=== PATIENT | male | born 1965 | race Caucasian/White ===

== ENCOUNTER → 2019-08-30 12:16 | Outpatient (BNVA) | payer MEDICARE, SELFPAY | PROVIDERS: Family Provider Nurse Practitioner Family; PCP Nurse Practitioner Family; Visit Provider Nurse Practitioner Family | DX: E78.5 Hyperlipidemia, unspecified (principal); J45.909 Unspecified asthma, uncomplicated; G47.33 Obstructive sleep apnea (adult) (pediatric); R53.83 Other fatigue; K59.00 Constipation, unspecified | CPT/HCPCS: 80053; 80061; 85025 ==

== ENCOUNTER → 2020-02-28 11:25 | Outpatient (BNVA) | payer MEDICARE, SELFPAY | PROVIDERS: Family Provider Nurse Practitioner Family; PCP Nurse Practitioner Family; Visit Provider Family Medicine | DX: M25.561 Pain in right knee (principal) | CPT/HCPCS: 73562 ==

== ENCOUNTER → 2021-02-08 09:58 | Outpatient (BNVA) | payer MEDICARE, SELFPAY | PROVIDERS: Family Provider Nurse Practitioner Family; PCP Family Medicine; Visit Provider Family Medicine | DX: J44.9 Chronic obstructive pulmonary disease, unspecified (principal); E78.5 Hyperlipidemia, unspecified | CPT/HCPCS: 80053; 80061; 84443; 85025 ==

== ENCOUNTER 2021-03-20 09:53 | Emergency (ER) | payer MEDICARE, SELFPAY ==
[2021-03-20] VITALS (9 sets, daily range): BP systolic 108–176; BP diastolic 79–100; PULSE 83–91; RESP 16–19; TEMP 37.1; O2SAT 87–98; BMI 39.9
--- NOTE | 2021-03-20 09:51 | ED_ITS ---
HPI - SOB/Dyspnea General: Chief Complaint: Shortness of Breath/Dyspnea Stated Complaint: SOB History of Present Illness: HPI Narrative: Mr. England is a 55-year-old gentleman with significant past medical history of COPD who presents to the emergency department due to shortness of breath. Onset of symptoms was gradual approximately 3 days ago and has progressively worsening. He does have mild associated worsening cough and generalized malaise. No other infectious symptoms. Intensity is currently moderate to severe. Worse with exertion. No other specific exacerbating or alleviating factors identified. Review of Systems General: Reports: 10 or more systems reviewed and unremarkable except in HPI and below PFS ED [facility]: Medical History (Updated 03/20/21 @ 14:17 by Rizwan Ortega MD) Asthma Hyperlipidemia Surgical History History of hernia surgery Previous back surgery Family History Mother Diabetes Hypertension Social History Smoking and tobacco status: current every day smoker cigarettes Packs smoked per day: 1 Years cigarettes smoked: 30 [ Other cigarette details: 0.5ppd currently ] Second hand smoke exposure: No Alcohol intake: never Lives independently: Yes Household members: spouse Marital status: History of recent travel: No Current gender identity: Male Physical Exam Narrative: EXAM NARRATIVE: GENERAL/CONSTITUTIONAL -mildly ill-appearing. No acute distress. Eyes -no scleral icterus, no conjunctival injection ENMT - Atraumatic external nose and ears. Moist mucous membranes NECK - supple. trachea midline CARDIOVASCULAR - regular rate and rhythm. 1-2+ pitting edema RESPIRATORY - diminished to auscultation bilaterally. Expiratory and trace inspiratory wheezes ABDOMEN/GI - Nontender/Nondistended. MSK - Extremities without obvious deformity or tenderness to palpation SKIN - Warm, Dry NEURO - alert and appropriately oriented. Moves all extremities equally. Course ED course: - Patient was seen and evaluated by me at bedside - Patient placed on cardiac monitors, IV access obtained - Initial evaluation notable for somewhat ill appearance, wheezes and diminished breath sounds, bilateral lower extremity edema which the patient reports is chronic and not worse. -Symptom treatment and RT treatment ordered - Labs notable for no leukocytosis. No significant metabolic abnormalities to explain patient's symptoms. Covid negative. - Imaging notable for no lobar consolidation. - Upon serial reexamination after treatment the patient was only mildly improved, further improvement with repeat RT treatment. - Based on patient history, evaluation, labs, and imaging as interpreted the most likely cause of the patient's condition is exacerbation of COPD with new oxygen requirement due to heart hypoxemia and respiratory distress on room air. - The results of ED evaluation were discussed with the patient including potential disposition options. I offered the patient admission versus discharge with home oxygen and COPD exacerbation treatment. The patient elected for outpatient therapy. After RT evaluation for home oxygen qualification home oxygen was ordered. I discussed prescriptions and/or symptomatic cares (if applicable) including appropriate and responsible use, followup plan, and return precautions. The patient verbalized understanding and felt safe for discharge. - Patient discharged in satisfactory condition. Vital Signs: Vital signs: Vital Signs Temperature 98.7 F 03/20/21 09:52 Pulse Rate 91 03/20/21 15:55 Respiratory Rate 16 03/20/21 13:22 Blood Pressure 134/79 03/20/21 15:55 Pulse Oximetry 95 03/20/21 15:55 MDM - SOB/Dyspnea Medical Records: Attestation: I reviewed the patient's medical records. Lab Data: Attestation: I reviewed the patient's lab results. Labs: Lab Results 03/20/21 03/20/21 03/20/21 10:21 10:21 10:21 WBC 7.8 10^3/uL 10^3/ uL (4.0-10.0) RBC 4.88 10^6/uL 10^6 /uL (4.1-5.3) Hgb 15.3 g/dL g/dL (11.7-16.6) Hct 47.1 % % (42.0-52.0) MCV 96.5 fl H fl (80-94) MCH 31.4 pg pg (28.0-34.0) MCHC 32.5 g/dL g/dL (30.0-36.0) RDW 13.0 % % (12.1-15.1) Plt Count 308 10^3/cmm 10^3 /cmm (130-400) MPV 8.5 fL fL (7.4-10.4) Neut % (Auto) 72.6 % % Lymph % (Auto) 13.8 % % [place] % (Auto) 8.7 % % Eos % (Auto) 4.0 % % Baso % (Auto) 0.6 % % Neut # (Auto) 5.67 10^3/uL 10^3 /uL (1.8-7.7) Lymph # (Auto) 1.1 10^3/uL 10^3/ uL (0.8-4.8) [place] # (Auto) 0.7 10^3/uL 10^3/ uL (0.2-0.9) Eos # (Auto) 0.3 10^3/uL 10^3/ uL (0.0-0.8) Baso # (Auto) 0.1 10^3/uL 10^3/ uL (0.0-0.1) Nucleated RBC % (a uto) 0 % % Nucleated RBCs # 0.0 /100WBC /100W BC Sodium 137 mmol/L mmol/L (136-145) Potassium 4.6 mmol/L mmol/L (3.5-5.1) Chloride 101 mmol/L mmol/L (98-107) Carbon Dioxide 24 mmol/L mmol/L (22-29) Anion Gap 16.6 (5-19) BUN 11 mg/dL mg/dL (6-20) Creatinine 0.9 mg/dL mg/dL (0.7-1.2) GFR Calculation 87.3 mL/min L mL/ min (90-130) Glucose 95 mg/dL mg/dL (65-115) Calculated Osmolal ity 283 mOsm/kg L mOs m/kg (285-295) Calcium 9.2 mg/dL mg/dL (8.5-10.5) Total Bilirubin 0.2 mg/dL mg/dL (0.15-1.2) AST 25 U/L U/L (0-40) ALT 24 U/L U/L (0-41) Alkaline Phosphata se 98 IU/L IU/L (40-130) Troponin T Baselin e 6 ng/L ng/L (0-15) Troponin T 120 Min [place] Troponin T C-Reactive Protein 3.4 mg/L mg/L (0.0-4.9) NT-Pro-B Natriuret Pep 25 pg/mL pg/mL (0-125) Total Protein 6.7 g/dL g/dL (6.6-8.7) Albumin 4.5 g/dL g/dL (3.5-5.2) Globulin 2.2 g/dL g/dL (1.3-4.6) Procalcitonin 0.06 ng/mL ng/mL (0-0.5) SARS-CoV-2 Ag (Rap id) 03/20/21 03/20/21 10:34 12:07 WBC RBC Hgb Hct MCV MCH MCHC RDW Plt Count MPV Neut % (Auto) Lymph % (Auto) [place] % (Auto) Eos % (Auto) Baso % (Auto) Neut # (Auto) Lymph # (Auto) [place] # (Auto) Eos # (Auto) Baso # (Auto) Nucleated RBC % (a uto) Nucleated RBCs # Sodium Potassium Chloride Carbon Dioxide Anion Gap BUN Creatinine GFR Calculation Glucose Calculated Osmolal ity Calcium Total Bilirubin AST ALT Alkaline Phosphata se Troponin T Baselin e Troponin T 120 Min [place] 7.43 ng/L ng/L (0-15) Delta Troponin T 1.43 ABS# ABS# (0-10) C-Reactive Protein NT-Pro-B Natriuret Pep Total Protein Albumin Globulin Procalcitonin SARS-CoV-2 Ag (Rap id) Negative (Negative) EKG Data^: EKG 1: Attestation: I personally reviewed and interpreted this EKG as follows: EKG Interpretation Date: 03/20/21 EKG interpretation time: 10:13 Interpretation: Twelve-lead EKG shows a regular rhythm at a rate of 81. Level 221, QRS duration 83, QTc 370. Normal axis. Interpretation: Sinus rhythm. First-degree AV block. EKG 2: Attestation: I personally reviewed and interpreted this EKG as follows: EKG Interpretation Date: 03/20/21 EKG interpretation time: 12:45 Interpretation: Twelve-lead EKG shows a regular rhythm at a rate of 80. SC interval 197, QRS duration 98, QTc 395. Normal axis. Interpretation: Sinus rhythm Discharge Plan Discharge Patient Disposition: Home Clinical Impression: Acute exacerbation of chronic obstructive airways disease Condition: Stable Prescriptions: New albuterol sulfate 90 mcg/actuation HFA aerosol inhaler See Rx Instructions .ROUTE .COMPLEX Qty: 8.5 RF: 0 doxycycline hyclate 100 mg tablet 100 mg PO BID 7 Days Qty: 14 RF: 0 No Action rosuvastatin [Crestor] 40 mg tablet 40 mg PO DAILY Qty: 30 RF: 3 Trelegy Ellipta 100-62.5-25 mcg blister with device See Rx Instructions .ROUTE .COMPLEX Qty: 60 RF: 3 diclofenac sodium 75 mg tablet,delayed release (DR/EC) 75 mg PO BID PRN (Reason: pain) Qty: 60 RF: 3 albuterol sulfate 90 mcg/actuation HFA aerosol inhaler 2 puff INHALATION Q6H PRN (Reason: shortness of breath or wheezing) Qty: 18 RF: 2 albuterol sulfate 2.5 mg /3 mL (0.083 %) solution for nebulization See Rx Instructions .ROUTE .COMPLEX Qty: 225 RF: 5 arformoterol [Brovana] 15 mcg/2 mL solution for nebulization 2 ml inhalation DAILY Qty: 60 RF: 3 nicotine 21-14-7 mg/24 hr patch, TD daily, sequential See Rx Instructions transdermal .COMPLEX Qty: 56 RF: 0 cyclobenzaprine 10 mg tablet 10 mg PO TID PRN (Reason: muscle spasm) Qty: 30 RF: 0 fenofibrate 160 mg tablet 160 mg PO DAILY Qty: 90 RF: 0 Discharge Orders: Discharge ED (Routine); Ordered 03/20/21 Ordered By: Rizwan Ortega Other Ambulatory Orders: DME: Oxygen (Order) Location: None Selected Ordered By: Rizwan Ortega Referrals: Triny Elder MD [Primary Care Provider] - Discharge Diet: Usual diet Discharge Activity: Resume usual activity Patient Instructions: Using Oxygen at Home (ED), COPD (Chronic Obstructive Pulmonary Disease) (ED) Activity Restrictions/Additional Instructions: Thank you for visiting the emergency department. You were seen and evaluated for shortness of breath. The most likely cause of your symptoms is exacerbation of your underlying lung disease (COPD). You will be given prescriptions as well as home oxygen which she should use until improvement/return to baseline and follow-up with your security expert. Return to the emergency department for failure to improve, worsening symptoms, or anything else that you are concerned about and feel needs emergency department evaluation. Please follow-up with your primary care provider. Coding Level of Care Code ED Pulley Maintainer for Brijesh Davies
--- NOTE | 2021-03-20 10:14 | XRR_ITS ---
PROCEDURE INFORMATION: Exam: XR Chest Exam date and time: 03/20/2021 10:14 AM Age: 55 years old Clinical indication: Cough and shortness of breath; Additional info: SOB x 3 days TECHNIQUE: Imaging protocol: XR of the chest. Views: 1 view. COMPARISON: CR Chest 2 views* [id number] 03/30/2018 10:46 AM FINDINGS: Lungs: Lungs are well aerated without a focal area of consolidation. Pleural spaces: Unremarkable. No pleural effusion. No pneumothorax. Heart/Mediastinum: The cardiac silhouette appears enlarged, some of which is magnification related to the AP projection. Density adjacent to the right and left heart borders likely fat. Bones/joints: Unremarkable. XR/XR chest 1V portable [id number] IMPRESSION: Lungs are well aerated without a focal area of consolidation. Radiation Dose CTDIVOL = (mGy): DLP = (mGy-cm)
--- NOTE | 2021-03-20 10:15 | ECG_ITS ---
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 Measurements Intervals [place] Rate: 81 P: 63 CO: 221 QRS: 85 QRSD: 83 T: 58 QT: 332 QTc: 387 Interpretive Statements SINUS RHYTHM WITH FIRST DEGREE AV BLOCK SEPTAL MYOCARDIAL INFARCTION , PROBABLY OLD [40+ ms Q WAVE IN V1/V2] Compared to ECG 04/11/2016 09:08:46 First degree AV block now present Myocardial infarct finding now present Electronically Signed On 03-20-2021 17:36:03 SURGICAL ASST by Jermaine Pemberton M.D. [id number]
[2021-03-20 10:37] LABS: Basophils # 0.1 10^3/uL (0.0-0.1); Basophils % 0.6 %; Eosinophils # 0.3 10^3/uL (0.0-0.8); Hematocrit 47.1 % (42.0-52.0); Hemoglobin 15.3 g/dL (11.7-16.6); Lymphocytes # 1.1 10^3/uL (0.8-4.8); Lymphocytes % 13.8 %; Mean Corpuscular HGB Conc 32.5 g/dL (30.0-36.0); Mean Corpuscular Hemoglobin 31.4 pg (28.0-34.0); Mean Corpuscular Volume 96.5 fl (80-94); Mean Platelet Volume 8.5 fL (7.4-10.4); Monocytes # 0.7 10^3/uL (0.2-0.9); Monocytes % 8.7 %; Neutrophils # 5.67 10^3/uL (1.8-7.7); Neutrophils % 72.6 %; Nucleated Red Blood Cells % 0 %; Platelet Count 308 10^3/cmm (130-400); Red Blood Count 4.88 10^6/uL (4.1-5.3); White Blood Count 7.8 10^3/uL (4.0-10.0)
[2021-03-20 11:10] LABS: Troponin(5th) Baseline 6 ng/L (0-15)
[2021-03-20 11:15] LABS: NT Pro B Type Natriuretic Pept 25 pg/mL (0-125); Procalcitonin 0.06 ng/mL (0-0.5)
[2021-03-20 11:26] LABS: Alanine Aminotransferase 24 U/L (0-41); Albumin Level 4.5 g/dL (3.5-5.2); Alkaline Phosphatase 98 IU/L (40-130); Anion Gap 16.6 (5-19); Aspartate Amino Transferase 25 U/L (0-40); Blood Urea Nitrogen 11 mg/dL (6-20); C Reactive Protein 3.4 mg/L (0.0-4.9); Calcium 9.2 mg/dL (8.5-10.5); Carbon Dioxide 24 mmol/L (22-29); Chloride 101 mmol/L (98-107); Globulin 2.2 g/dL (1.3-4.6); Glomerular Filtration Rate 87.3 mL/min (90-130); Glucose 95 mg/dL (65-115); Osmolality Calculated 283 mOsm/kg (285-295); Potassium 4.6 mmol/L (3.5-5.1); Sodium 137 mmol/L (136-145); Total Bilirubin 0.2 mg/dL (0.15-1.2); Total Protein 6.7 g/dL (6.6-8.7)
[2021-03-20 11:41] LABS: SARS Covid-2 Antigen Negative (Negative)
[2021-03-20] MEDS: ipratropium-albuterol 3 mL Neb INHALATION ×2 (11:53→13:15)
--- NOTE | 2021-03-20 12:15 | ECG_ITS ---
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 Measurements Intervals [place] Rate: 80 P: 68 MT: 197 QRS: 86 QRSD: 98 T: 53 QT: 360 QTc: 415 Interpretive Statements SINUS RHYTHM Compared to ECG 04/11/2016 09:08:46 No significant changes Electronically Signed On 03-20-2021 17:43:19 COMPUTER SYSTEM VALIDATION SPECIALIST by Jermaine Pemberton M.D. [id number]
[2021-03-20 12:40] LABS: Troponin 5 2HR 7.43 ng/L (0-15); Troponin 5 2HR Delta 1.43 ABS# (0-10)
== END 2021-03-20 15:57 | disposition home or self-care (01) ==
PROVIDERS: Emergency Provider Emergency Medicine; PCP Family Medicine
DX: J44.1 Chronic obstructive pulmonary disease with (acute) exacerbation (principal); F17.210 Nicotine dependence, cigarettes, uncomplicated
CPT/HCPCS: 71045; 80053; 83880; 84145; 84484; 85025; 86140; 87426; 93005; 94640; 96374; 99284; J2930

== ENCOUNTER → 2021-03-26 10:42 | Outpatient (BNVA) | payer MEDICARE, SELFPAY | PROVIDERS: PCP Family Medicine; Visit Provider Family Medicine | DX: E78.2 Mixed hyperlipidemia (principal); J44.9 Chronic obstructive pulmonary disease, unspecified; F17.210 Nicotine dependence, cigarettes, uncomplicated | CPT/HCPCS: 80053; 80061; 84443; 85025 ==

== ENCOUNTER 2021-04-03 11:57 | Outpatient (CLI) | payer MEDICARE, SELFPAY ==
--- NOTE | 2021-04-03 12:10 | CT_ITS ---
WS: [id number] LDCT LUNG CANCER SCREENING TECHNIQUE: Noncontrast CT of the chest with coronal and sagittal reformatted images. CLINICAL INFORMATION: Lung Screening COMPARISON: None. DLP: 59.33 mGy.cm DIvol: 1.[address] scans at [facility] use at least one of these dose optimization techniques: automat ed exposure control; mA and/or kV adjustment per patient size (includes targeted exams where dose is matched to clinical indication); or iterative reconstruction. FINDINGS: Both lungs are well aerated. Subsegmental atelectasis in the lingula. A few calcified granulomas. No suspicious pulmonary parenchymal normalities. No mediastinal or hilar lymphadenopathy. Normal caliber thoracic aorta. Adrenal glands are normal. Normal thoracic spine. CT/CT lung screening [id number] IMPRESSION: LUNG-RADS: 2-Benign Appearance or Behavior FOLLOW UP: 12 Month: Continue annual screening with LDCT
== END 2021-04-03 11:58 | disposition home or self-care (01) ==
LOC: RAD 11:58
PROVIDERS: PCP Family Medicine; Visit Provider Internal Medicine Pulmonary Disease
DX: Z12.2 Encounter for screening for malignant neoplasm of respiratory organs (principal); F17.210 Nicotine dependence, cigarettes, uncomplicated
CPT/HCPCS: 71271

== ENCOUNTER → 2021-07-01 12:24 | Outpatient (BNVA) | payer MEDICARE, SELFPAY | PROVIDERS: PCP Family Medicine; Visit Provider Family Medicine | DX: J44.9 Chronic obstructive pulmonary disease, unspecified (principal); E78.2 Mixed hyperlipidemia; G56.20 Lesion of ulnar nerve, unspecified upper limb | CPT/HCPCS: 80053; 80061; 85025 ==

== ENCOUNTER → 2021-09-02 13:57 | Outpatient (BNVA) | payer MEDICARE, SELFPAY | PROVIDERS: PCP Family Medicine; Visit Provider Nurse Practitioner Family | DX: J44.9 Chronic obstructive pulmonary disease, unspecified (principal) | CPT/HCPCS: 71046 ==

== ENCOUNTER 2021-09-19 08:20 | Outpatient (CLI) | payer MEDICARE, SELFPAY ==
--- NOTE | 2021-09-19 08:45 | USCV_ITS ---
[facility] Age: 55 Gender: M : 1965 Exam Date: 09/19/2021 08:31 Ordering Phys: Myriam MatthewP Technologist: Exam Location: [place] Indication: chf BP: 120 / 70 HR: 74 Rhythm: Sinus Technical Quality: Adequate MEASUREMENTS (Male / Female) Normal Values 2D ECHO LV Diastolic Diameter PLAX 4.6 cm 4.2 - 5.9 / 3.9 - 5.3 cm LV Systolic Diameter PLAX 2.5 cm IVS Diastolic Thickness 1.4 cm 0.6 - 1.0 / 0.6 - 0.9 cm IVS Systolic Thickness 1.8 cm LVPW Diastolic Thickness 1.6 cm 0.6 - 1.0 / 0.6 - 0.9 cm LVPW Systolic Thickness 1.6 cm LVOT Diameter 2.0 cm LV Ejection Fraction 2D Teich 75.7 % LV Ejection Fraction MOD 2C 63.1 % LV Ejection Fraction 2C AL 64.6 % LA Diameter 4.0 cm Aorta at Sinotubular Diameter 3.1 cm M-MODE Aortic Annulus Diameter 3.8 cm LA Ao Ratio MM 1.2 MV E Point Septal Separation 0.8 cm DOPPLER AV Peak Velocity 119.0 cm/s LVOT Peak Velocity 79.0 cm/s AV Area Cont Eq vti 2.3 cm squared AV Area Cont Eq pk 2.2 cm squared MV Area PHT 5.0 cm squared Mitral E to A Ratio 1.0 MV E' Velocity 36.5 cm/s Mitral E to MV E' Ratio 5.6 Mitral E to LV E' Lateral Ratio 6.7 Mitral E to LV E' Septal Ratio 4.9 TR Peak Velocity 130.7 cm/s TR Peak Gradient 6.8 mmHg TV Peak E Velocity 80.0 cm/s Right Atrial Pressure 3.0 mmHg Pulmonary Artery Systolic Pressu 9.8 mmHg PV Peak Velocity 126.0 cm/s FINDINGS Left Ventricle Normal left ventricular size and systolic function, EF 60 %. No regional wall motion abnormalities. Right Ventricle Normal right ventricular size and systolic function. Right Atrium The right atrium is normal in size. Left Atrium The left atrium is normal in size. Mitral Valve No gross abnormalities noted Aortic Valve No gross abnormalities noted Tricuspid Valve No gross abnormalities noted Pulmonic Valve Pulmonic valve not well visualized. Pericardium Normal pericardium without effusion. Aorta Normal aortic annulus size. IVC The inferior vena cava pulmonary and hepatic veins appear normal. CONCLUSIONS Normal left ventricular size and systolic function, EF 60 %. No regional wall motion abnormalities. Normal cardiac chamber sizes. No significant stenotic or regurgitant lesions There is no pericardial effusion. No previous study is available for comparison. Dr Aamir Massey MD [facility]GED WITH [facility] (Electronically Signed) Final Date: 19 Sep 2021 14:11 S
== END 2021-09-19 08:21 | disposition home or self-care (01) ==
PROVIDERS: PCP Family Medicine; Visit Provider Nurse Practitioner Family
DX: I50.9 Heart failure, unspecified (principal)
CPT/HCPCS: 93306

== ENCOUNTER 2021-11-21 08:48 | Outpatient (CLI) | payer MEDICARE, SELFPAY ==
[2021-11-21 09:44] LABS: ABG PCO2 42.5 mmHg (35-45); ABG PH Result 7.41 (7.35-7.45); Alveolar-Arterial Oxygen Gradi 1.3 mmHg (5-10); Arterial Blood Gas Hematocrit 43.6 % (42-52); Blood Gas Allen Test Pos; Blood Gas Operator Identificat BROMA; Blood Gas Sample Site Radial, left; Blood Gas Sample Type Arterial; Carboxyhemoglobin 3.9 %THgb (0.4-20.1); HGB O2 Sat 92.5 % (95-100); Ionized Calcium Level - ABG 1.3 mmol/L (1.1-1.4); Oxygen Device NC; Oxygen Saturation ABG 97.3; PO2 ABG 86.6 mmHg (80.0-100.0); Potassium Level - ABG 4.1 mmol/L (3.5-5.0); Total Hemoglobin 14.2 g/dL (14-18)
--- NOTE | 2021-11-21 13:58 | PFTS_ITS ---
Date of Study:11/21/21 Date of Dictation: 11/22/2021 MECHANICS: Postbronchodilator forced vital capacity (FVC) is reduced. Postbronchodilator forced expiratory volume in one second (FEV1) is severely reduced. FEV1/FVC is reduced. There is no significant bronchodilator response. FLOW VOLUME LOOP: Sloping of expiratory limb suggestive of airflow obstruction . LUNG VOLUMES: Total lung capacity (TLC) is normal. Residual volume (RV) is increased suggestive of air trapping. DIFFUSING CAPACITY FOR CARBON MONOXIDE: Mildly reduced . INTERPRETATION: The postbronchodilator is spirometry suggestive of severe airflow obstruction. There is no significant bronchodilator response. Lung volumes suggest air trapping and hyperinflation. There is mild gas transfer defect. Clinical correlation recommended. MTDD
== END 2021-11-21 08:49 | disposition home or self-care (01) ==
LOC: RT 08:49
PROVIDERS: PCP Family Medicine; Visit Provider Internal Medicine Pulmonary Disease
DX: J44.9 Chronic obstructive pulmonary disease, unspecified (principal); R06.00 Dyspnea, unspecified
CPT/HCPCS: 36600; 80051; 82330; 82805; 94060; 94726; 94729; J7614

== ENCOUNTER → 2021-12-31 11:55 | Outpatient (BNVA) | payer MEDICARE, SELFPAY | PROVIDERS: PCP Family Medicine; Visit Provider Internal Medicine | DX: I50.9 Heart failure, unspecified (principal); E78.2 Mixed hyperlipidemia; R06.00 Dyspnea, unspecified; R07.89 Other chest pain; F17.210 Nicotine dependence, cigarettes, uncomplicated | CPT/HCPCS: 99204 ==

== ENCOUNTER → 2022-01-22 16:40 | Outpatient (BNVA) | payer MEDICARE, SELFPAY | PROVIDERS: PCP Family Medicine; Visit Provider Family Medicine | DX: E78.2 Mixed hyperlipidemia (principal); J44.9 Chronic obstructive pulmonary disease, unspecified; R53.83 Other fatigue | CPT/HCPCS: 80053; 80061; 82306; 82607; 83540; 83721; 84403; 84443; 85025; G0103 ==

== ENCOUNTER 2022-02-10 14:04 | Outpatient (CLI) | payer MEDICARE, SELFPAY ==
--- NOTE | 2022-02-10 14:30 | USCV_ITS ---
[place] Age: 56 Gender: M : 1965 Exam Date: 02/10/2022 14:46 Ordering Phys: Jermaine Pemberton M.D ([email or web address]) Technologist: RAMOS [place] [facility] [place]: Risk Factors: Previous Vascular Surgery: Right Brachial BP: / Left Brachial BP: / Right Left Velocity (cm/s) Spectral Plaque Velocity (cm/s) Spectral Plaque Syst/Diast Broadening Syst/Diast Broadening 88.60/ 25.60 Prox CCA 51.30 / 12.30 77.70/ 22.50 Mid CCA 67.00 / 17.70 80.00/ 20.20 Distal CCA 48.60 / 13.80 58.50/ 19.70 Prox ICA 66.40 / 15.80 57.80/ 17.70 Mid ICA 82.00 / 29.10 63.80/ 18.40 Distal ICA 70.10 / 31.60 83.90 ECA 51.90 0.72 ICA/CCA 1.22 Antegrade Vertebral Antegrade 41.40/ 14.10 cm/s 32.60/ 8.00 cm/s Tri Subclavian Tri 80.80 78.50 FINDINGS No significant obstructive lesions noted in the extracranial carotid system. CONCLUSIONS Right ICA stenosis <50%. Left ICA stenosis <50%. Normal antegrade Doppler flow noted in the right vertebral artery. Normal antegrade Doppler flow noted in the left vertebral artery. Hiram Bowser MD (Electronically Signed) Final Date: 10 February 2022 17:06 S
== END 2022-02-10 14:05 | disposition home or self-care (01) ==
LOC: RAD 14:06
PROVIDERS: PCP Family Medicine; Visit Provider Internal Medicine
DX: I65.23 Occlusion and stenosis of bilateral carotid arteries (principal)
CPT/HCPCS: 93880

== ENCOUNTER 2022-02-27 06:00 | Outpatient (RCR) | payer MEDICARE, SELFPAY ==
--- NOTE | 2022-02-27 16:29 | PC.PULMREH ---
Patient attended Pulmonary Rehab Education Class.
== END 2022-03-26 23:59 | disposition home or self-care (01) ==
LOC: APT 06:00
PROVIDERS: PCP Family Medicine; Visit Provider Internal Medicine Pulmonary Disease
DX: R53.81 Other malaise (principal); J44.9 Chronic obstructive pulmonary disease, unspecified
CPT/HCPCS: 97110; 97112; 97162

== ENCOUNTER 2022-03-13 15:13 | Outpatient (CLI) | payer MEDICARE, SELFPAY ==
--- NOTE | 2022-03-13 16:00 | CT_ITS ---
WS: [id number] LDCT LUNG CANCER SCREENING TECHNIQUE: Noncontrast CT of the chest with coronal and sagittal reformatted images. CLINICAL INFORMATION: J44.9 - Chronic obstructive pulmonary disease, unspecified COMPARISON: CT April 03, 2021 DLP: 87.28 mGy.cm DIvol: Mean CTDIvol: 1.60 (mGy) All CT scans at [facility] use at least one of these dose optimization techniques: automat ed exposure control; mA and/or kV adjustment per patient size (includes targeted exams where dose is matched to clinical indication); or iterative reconstruction. FINDINGS: No acute pulmonary infiltrates. Lungs are well aerated. Slight hazy atelectasis in the RIGHT greater than LEFT lower lobes. No suspicious pulmonary parenchymal opacities. A few prominent lymph nodes at the gastroesophageal junction better seen today but unchanged. This is unchanged since 2017 Normal caliber thoracic aorta. No mediastinal or hilar lymphadenopathy. No axillary lymphadenopathy. Adrenal glands are normal. Normal GE junction. Fatty atrophy of the pancreas. CT/CT lung screening [id number] IMPRESSION: LUNG-RADS: 1-Negative FOLLOW UP: 12 Month: Continue annual screening with LDCT
== END 2022-03-13 15:14 | disposition home or self-care (01) ==
PROVIDERS: PCP Family Medicine; Visit Provider Internal Medicine Pulmonary Disease
DX: Z12.2 Encounter for screening for malignant neoplasm of respiratory organs (principal); J44.9 Chronic obstructive pulmonary disease, unspecified
CPT/HCPCS: 71271

== ENCOUNTER 2022-03-27 06:00 | Outpatient (RCR) | payer MEDICARE, SELFPAY | END 2022-04-26 23:59 | disposition home or self-care (01) | LOC: APT 06:00 | PROVIDERS: PCP Family Medicine; Visit Provider Internal Medicine Pulmonary Disease | DX: R53.81 Other malaise (principal); J44.9 Chronic obstructive pulmonary disease, unspecified | CPT/HCPCS: 97110 ==

== ENCOUNTER → 2022-04-22 14:29 | Outpatient (BNVA) | payer MEDICARE, SELFPAY | PROVIDERS: PCP Family Medicine; Visit Provider Nurse Practitioner Family | DX: R10.30 Lower abdominal pain, unspecified (principal); R14.0 Abdominal distension (gaseous); K21.9 Gastro-esophageal reflux disease without esophagitis; R10.11 Right upper quadrant pain; Z12.11 Encounter for screening for malignant neoplasm of colon | CPT/HCPCS: 80053; 85025 ==

== ENCOUNTER → 2022-04-23 12:44 | Outpatient (BNVA) | payer MEDICARE, SELFPAY | PROVIDERS: PCP Family Medicine; Visit Provider Nurse Practitioner Family | DX: R10.30 Lower abdominal pain, unspecified (principal); R14.0 Abdominal distension (gaseous) | CPT/HCPCS: 74018 ==

== ENCOUNTER → 2022-04-29 07:50 | Outpatient (BNVA) | payer MEDICARE, SELFPAY | PROVIDERS: PCP Family Medicine; Referring Provider Nurse Practitioner Family; Visit Provider Surgery | DX: I50.9 Heart failure, unspecified (principal); E78.2 Mixed hyperlipidemia; R06.00 Dyspnea, unspecified; R07.9 Chest pain, unspecified; F17.210 Nicotine dependence, cigarettes, uncomplicated; Z86.010 Personal history of colon polyps; R10.9 Unspecified abdominal pain; K21.9 Gastro-esophageal reflux disease without esophagitis | CPT/HCPCS: 99213; 99214 ==

== ENCOUNTER 2022-06-11 08:45 | Day surgery (SDC) | payer MEDICARE, SELFPAY ==
[2022-06-09 13:19] VITALS: BMI 38.2
[2022-06-11 08:55] VITALS: BP 129/80; PULSE 80; RESP 18; TEMP 36.7; O2SAT 97
[2022-06-11] MEDS: sodium chloride 0.9% 1,000 ML 30 ML IV (09:14)
--- NOTE | 2022-06-11 10:02 | ANES.PREANE2 ---
Pre-Anesthetic Assessment Height/Weight: Height 1.79 m Weight 122.47 kg Temp Pulse Resp BP Pulse Ox O2 Del Method O2 Flow Rate 98.0 F 80 18 129/80 97 2 06/11/22 08:55 06/11/22 08:55 06/11/22 08:55 06/11/22 08:55 06/11/22 08:55 06/11/22 08:55 06/11/22 08:55 Operation Date: 06/11/22 10:30 Proposed Procedures p [id number] EGD 87500 Colonoscopy,Z12.11,R10.9,K21.9(Not Applicable) - Glenn Funez DO s Colonoscopy(Not Applicable) - Glenn Funez DO Familial anesthetic complications: None Was Beta Dwayne taken within 24 hours: N/A Was Clonidine taken within 24 hours: N/A Last intake: Intake Last Liquid Date 06/10/22 Last Liquid Time 21:00 Last Solid Date 06/09/22 Last Solid Time 18:00 Social Tobacco and No alcohol .5 pack(s) per day Exam alert, oriented x 3 and regular rate & rhythm Diminished bilaterally Airway Submandibular: within normal limits Cervical ROM: within normal limits Mallampati: Class III Dentition: false History/ROS No significant history except as noted and No significant complaints Pulmonary Asthma, Chronic Obstructive Pulmonary Disease, Cough and Exertional Dyspnea 2L O2 at all times CV/HEM Coronary Artery Disease EF 60% None reported Hepatic None reported GI Gastroesophageal Reflux Disease (Controlled with med, no problems this AM) Metabolic Hyperlipidemia and Morbid Obesity Musc/skel Lower Back Pain Neuropsych None reported Anesthetic Plan ASA status: 3 Anesthesia: Anesthesia Evaluation, General and MAC Risk of > 500 ml blood loss (7ml/kg in children): No Medications/Allergies Home Medications Medication Instructions Recorded Confirmed Last Taken Type cyclobenzaprine 10 mg tablet 10 mg PO TID PRN muscle spasm #30 03/30/20 06/09/22 06/10/22 Rx tabs Oxygen with portable concentrator #1 ea 04/09/21 04/29/22 Unknown Rx at 2L flow continuous. albuterol sulfate 90 mcg/actuation 2 puff inhalation Q6H PRN 08/15/21 06/09/22 06/11/22 Rx aerosol inhaler shortness of breath or wheezing #8.5 grams linaclotide 145 mcg capsule 145 mcg PO DAILY #30 caps 08/15/21 06/09/22 06/10/22 Rx (Linzess) niacin 500 mg capsule,extended 500 mg PO DAILY #90 caps 06/04/22 06/09/22 06/10/22 Rx release albuterol sulfate 2.5 mg/3 mL 2.5 mg inhalation Q4-5H PRN 06/11/22 06/11/22 06/10/22 History (0.083 %) solution for nebulization Shortness Of Breath arformoterol 15 mcg/2 mL solution 15 mcg inhalation EVERY OTHER DAY 06/11/22 06/11/22 06/10/22 History for nebulization (Brovana) fenofibrate 160 mg tablet 160 mg PO DAILY 06/11/22 06/11/22 06/10/22 History fluticasone fur. 100 mcg-umeclid 1 inh inhalation DAILY 06/11/22 06/11/22 06/11/22 History 62.5 mcg-vilant 25 mcg inhalat.powder (Trelegy Ellipta) pantoprazole 40 mg tablet,delayed 40 mg PO DAILY 06/11/22 06/11/22 06/10/22 History release rosuvastatin 40 mg tablet 40 mg PO DAILY 06/11/22 06/11/22 06/10/22 History Allergies Allergy/AdvReac Type Severity Reaction Status Date / Time No Known Allergies Allergy Verified 06/11/22 08:57 Current Medications Generic Name Dose Route Start Last Admin Trade Name Freq PRN Reason Stop Dose Admin Sodium Chloride 1,000 mls @ 30 mls/hr 06/11/22 09:00 06/11/22 09:14 Sodium Chloride 0.9% IV 06/12/22 08:59 30 mls/hr .Q24H SNEHAL Administration PFSH Anesthesia Medical History Asthma Hyperlipidemia Surgical History History of hernia surgery Hx of colonoscopy with polypectomy Previous back surgery Family History Mother Diabetes Hypertension Social History Smoking and tobacco status: current every day smoker cigarettes Packs smoked per day: 1 Years cigarettes smoked: 30 [ Other cigarette details: 0.5ppd currently] Second hand smoke exposure: No Alcohol intake: never Caregiver/support person: Yes Lives independently: Yes (spouse) Household members: spouse Marital status: service: No Current occupational status: disabled History of recent travel: No Current gender identity: Male Special destiny needs: No Data Anesthesia Cardiac Studies: Echocardiogram 09/19/21
--- NOTE | 2022-06-11 10:19 | PM.HP ---
Providers/Chief Complaint Primary Care Provider: Triny Elder MD Chief Complaint: Z12.11, R10.9 History of Present Illness Shawn England is a 56 year old male here for EGD and colonoscopy Medications/Allergies Home Medications Medication Instructions Recorded Confirmed Last Taken Type cyclobenzaprine 10 mg tablet 10 mg PO TID PRN muscle spasm #30 03/30/20 06/09/22 06/10/22 Rx tabs Oxygen with portable concentrator #1 ea 04/09/21 04/29/22 Unknown Rx at 2L flow continuous. albuterol sulfate 90 mcg/actuation 2 puff inhalation Q6H PRN 08/15/21 06/09/22 06/11/22 Rx aerosol inhaler shortness of breath or wheezing #8.5 grams linaclotide 145 mcg capsule 145 mcg PO DAILY #30 caps 08/15/21 06/09/22 06/10/22 Rx (Linzess) niacin 500 mg capsule,extended 500 mg PO DAILY #90 caps 06/04/22 06/09/22 06/10/22 Rx release albuterol sulfate 2.5 mg/3 mL 2.5 mg inhalation Q4-5H PRN 06/11/22 06/11/22 06/10/22 History (0.083 %) solution for nebulization Shortness Of Breath arformoterol 15 mcg/2 mL solution 15 mcg inhalation EVERY OTHER DAY 06/11/22 06/11/22 06/10/22 History for nebulization (Brovana) fenofibrate 160 mg tablet 160 mg PO DAILY 06/11/22 06/11/22 06/10/22 History fluticasone fur. 100 mcg-umeclid 1 inh inhalation DAILY 06/11/22 06/11/22 06/11/22 History 62.5 mcg-vilant 25 mcg inhalat.powder (Trelegy Ellipta) pantoprazole 40 mg tablet,delayed 40 mg PO DAILY 06/11/22 06/11/22 06/10/22 History release rosuvastatin 40 mg tablet 40 mg PO DAILY 06/11/22 06/11/22 06/10/22 History Allergies Allergy/AdvReac Type Severity Reaction Status Date / Time No Known Allergies Allergy Verified 06/11/22 08:57 PFSH Acute PFSH: Medical History Asthma Hyperlipidemia Surgical History History of hernia surgery Hx of colonoscopy with polypectomy Previous back surgery Family History Mother Diabetes Hypertension Social History Smoking and tobacco status: current every day smoker cigarettes Packs smoked per day: 1 Years cigarettes smoked: 30 [ Other cigarette details: 0.5ppd currently] Second hand smoke exposure: No Alcohol intake: never Caregiver/support person: Yes Lives independently: Yes (spouse) Household members: spouse Marital status: service: No Current occupational status: disabled History of recent travel: No Current gender identity: Male Special destiny needs: No Vitals/I&O/Wt Last Vital Signs Temp 98.0 F 06/11/22 08:55 Pulse 80 06/11/22 08:55 Resp 18 06/11/22 08:55 BP 129/80 06/11/22 08:55 Pulse Ox 97 06/11/22 08:55 O2 Del Method 06/11/22 08:55 O2 Flow Rate 2 06/11/22 08:55 Weight last 48 hrs Weight 270 lb A&P Assessment and plan (1) Encounter for screening for malignant neoplasm of colon: (2) Abdominal pain: (3) Gastroesophageal reflux disease: Plan EGD and colonoscopy Attestations Medical Necessity Statement*: Home Coding Level of Care Code Acute Code for Chg Fwd Diagnoses Encounter for screening for malignant neoplasm of colon Z12.11 Abdominal pain R10.9 Gastroesophageal reflux disease K21.9
[2022-06-11 10:55] VITALS: BP 128/74; PULSE 78; RESP 16; TEMP 36.3; O2SAT 96
[2022-06-11 11:05] VITALS: BP 128/76; PULSE 68; RESP 16; O2SAT 96
--- NOTE | 2022-06-11 15:49 | ANE.PACU2 ---
Inpatient post-anesthesia follow up: Airway intact: Yes Vital signs: Temperature 97.3 F Pulse Rate 68 Respiratory Rate 16 Blood Pressure 128/76 Pulse Oximetry 96 Oxygen Delivery Me thod Nasal Cannula Oxygen Flow Rate 2 Fraction of Inspir ed Oxygen Hydration adequate: Yes Nausea and vomiting: No Pain level: 2 Mental status: Baseline
== END 2022-06-11 11:32 | disposition home or self-care (01) ==
PROVIDERS: PCP Family Medicine; Visit Provider Surgery
PROC: 0DJ08ZZ Inspection of Upper Intestinal Tract, Via Natural or Artificial Opening Endoscopic (ICD-10-PCS; CPT 43235; principal; 2022-06-11 10:30)
PROC: 0DJD8ZZ Inspection of Lower Intestinal Tract, Via Natural or Artificial Opening Endoscopic (ICD-10-PCS; CPT 45378; 2022-06-11 10:30)
DX: Z12.11 Encounter for screening for malignant neoplasm of colon (principal); K64.8 Other hemorrhoids; R10.9 Unspecified abdominal pain; K21.9 Gastro-esophageal reflux disease without esophagitis; E78.5 Hyperlipidemia, unspecified; F17.210 Nicotine dependence, cigarettes, uncomplicated; K63.5 Polyp of colon; K29.50 Unspecified chronic gastritis without bleeding; E66.01 Morbid (severe) obesity due to excess calories; I25.10 Atherosclerotic heart disease of native coronary artery without angina pectoris; Z99.81 Dependence on supplemental oxygen
CPT/HCPCS: 43239; 45385; 88305; J2704; J7030

== ENCOUNTER 2022-06-13 06:27 | Outpatient (CLI) | payer MEDICARE, SELFPAY ==
--- NOTE | 2022-06-13 07:00 | US_ITS ---
WS: [id number] RIGHT UPPER QUADRANT ULTRASOUND HISTORY: R14.0 - Abdominal distension (gaseous) COMPARISON: 11/27/2017 Liver: 19.4 cm in length. Moderately enlarged liver. Dense liver with poor penetration throughout. Th e entire liver is not very well visualized. No mass identified. No bile duct dilatation. Portal Vein: Normal hepatopetal flow with monophasic waveform. Gallbladder: Normally distended gallbladder with no stones or wall thickening. CBD: 0.3 cm Pancreas: Normal size and echogenicity. Right kidney: 10.9 cm in length. Normal size and echogenicity. No hydronephrosis or mass. Aorta and IVC: Unremarkable abdominal aorta and IVC. No ascites. US/US gall bladder [id number] IMPRESSION: 1. Normal gallbladder. No cholelithiasis. 2. Enlarged dense liver. Consistent with hepatic steatosis. Hepatic steatosis has increased since 2018.
== END 2022-06-13 06:28 | disposition home or self-care (01) ==
LOC: RAD 06:30
PROVIDERS: PCP Family Medicine; Visit Provider Nurse Practitioner Family
DX: R14.0 Abdominal distension (gaseous) (principal); R16.0 Hepatomegaly, not elsewhere classified
CPT/HCPCS: 76705

== ENCOUNTER → 2022-06-17 17:08 | Outpatient (BNVA) | payer MEDICARE, SELFPAY | PROVIDERS: PCP Family Medicine; Visit Provider Surgery | DX: Z09 Encounter for follow-up examination after completed treatment for conditions other than malignant neoplasm (principal); R10.31 Right lower quadrant pain; K63.5 Polyp of colon; K75.81 Nonalcoholic steatohepatitis (NASH) | CPT/HCPCS: 99212 ==

== ENCOUNTER → 2022-06-30 17:45 | Outpatient (BNVA) | payer MEDICARE, SELFPAY | PROVIDERS: PCP Family Medicine; Visit Provider Family Medicine | DX: K75.81 Nonalcoholic steatohepatitis (NASH) (principal); E78.2 Mixed hyperlipidemia | CPT/HCPCS: 80061 ==

== ENCOUNTER → 2022-08-27 14:27 | Outpatient (BNVA) | payer MEDICARE, SELFPAY | PROVIDERS: PCP Family Medicine; Visit Provider Family Medicine | DX: M25.561 Pain in right knee (principal); M25.562 Pain in left knee | CPT/HCPCS: 73562 ==

== ENCOUNTER → 2022-10-30 08:13 | Outpatient (BNVA) | payer MEDICARE, SELFPAY | PROVIDERS: PCP Family Medicine; Referring Provider Family Medicine; Visit Provider Student in an Organized Health Care Education/Training Program | DX: M25.561 Pain in right knee (principal) | CPT/HCPCS: 20610; 73560; 73565; 99203; J3301 ==

== ENCOUNTER → 2023-01-22 15:00 | Outpatient (BNVA) | payer MEDICARE, SELFPAY | PROVIDERS: PCP Family Medicine; Visit Provider Family Medicine | DX: G47.30 Sleep apnea, unspecified (principal); E78.5 Hyperlipidemia, unspecified; Z12.5 Encounter for screening for malignant neoplasm of prostate; R07.9 Chest pain, unspecified; R06.00 Dyspnea, unspecified; G47.33 Obstructive sleep apnea (adult) (pediatric); E78.2 Mixed hyperlipidemia; J44.9 Chronic obstructive pulmonary disease, unspecified | CPT/HCPCS: 80053; 80061; 84443; 85025; G0103 ==

== ENCOUNTER 2023-03-16 08:57 | Outpatient (CLI) | payer MEDICARE, SELFPAY ==
--- NOTE | 2023-03-16 09:00 | CT_ITS ---
WS: [id number] LDCT LUNG CANCER SCREENING TECHNIQUE: Noncontrast CT of the chest with coronal and sagittal reformatted images. CLINICAL INFORMATION: Z87.891 - Personal history of nicotine dependence COMPARISON: CT 2021 DLP: 139.01 mGy.cm DIvol: Mean CTDIvol: 3.10 (mGy) All CT scans at [facility] use at least one of these dose optimization techniques: automat ed exposure control; mA and/or kV adjustment per patient size (includes targeted exams where dose is matched to clinical indication); or iterative reconstruction. FINDINGS: No suspicious pulmonary parenchymal lung opacities. No suspicious pulmonary parenchymal opa cities. Subsegmental atelectasis in the lung bases RIGHT greater than LEFT. Interstitial thickening R IGHT lower lobe. Normal caliber thoracic aorta. Calcified LEFT hilar and subcarinal lymph nodes. No mediastinal or hil ar lymphadenopathy. No axillary lymphadenopathy. Adrenal glands are normal. Prominent lymph nodes at the GE junction unchanged. This is unchanged sinc e 2017 Fatty atrophy of the pancreas. IMPRESSION: CT/CT lung screening [id number] LUNG-RADS: 1-Negative FOLLOW UP: 12 Month: Continue annual screening with LDCT
== END 2023-03-16 08:58 | disposition home or self-care (01) ==
LOC: RAD 08:58
PROVIDERS: PCP Family Medicine; Visit Provider Internal Medicine Pulmonary Disease
DX: Z12.2 Encounter for screening for malignant neoplasm of respiratory organs (principal); Z87.891 Personal history of nicotine dependence
CPT/HCPCS: 71271

== ENCOUNTER 2023-05-20 06:10 | Outpatient (CLI) | payer MEDICARE, SELFPAY ==
--- NOTE | 2023-05-20 | US_ITS ---
WS: [id number] Complete ABDOMINAL ULTRASOUND HISTORY: ABD PAIN COMPARISON: 06/13/2022 Liver: 19.4 cm in length. Moderate hepatic steatosis and mild hepatomegaly. Similar to the prior stud y. No bile duct dilatation or mass. Portal Vein: Normal hepatopetal flow with monophasic waveform. Gallbladder: Normally distended gallbladder with no stones or wall thickening. CBD: 0.4 cm Pancreas: Partially obscured. Right kidney: 10.1 cm x 5.4 x 4.9 cm. Cortex:1.5 cm. Normal size and echogenicity. No hydronephrosis or mass. Left kidney: 11.0 cm x 6.5 cm x 5.8 cm. Cortex: 1.4 cm. Normal size and echogenicity. No hydronephrosis or mass. Spleen: 8.7 cm in length. Normal. Aorta and IVC: Unremarkable abdominal aorta and IVC. Impression: 1. Normal gallbladder. 2. Mild hepatic enlargement and moderate geographic hepatic steatosis. Similar to the prior study. 3. Limited visualization of the pancreas.
== END 2023-05-20 06:11 | disposition home or self-care (01) ==
LOC: RAD 06:11
PROVIDERS: PCP Family Medicine; Visit Provider Nurse Practitioner
DX: R10.9 Unspecified abdominal pain (principal); K76.0 Fatty (change of) liver, not elsewhere classified; R16.0 Hepatomegaly, not elsewhere classified
CPT/HCPCS: 76700

== ENCOUNTER → 2023-10-28 12:59 | Outpatient (BNVA) | payer MEDICARE, SELFPAY | PROVIDERS: PCP Family Medicine; Visit Provider Family Medicine | DX: E78.2 Mixed hyperlipidemia (principal); I10 Essential (primary) hypertension; K21.9 Gastro-esophageal reflux disease without esophagitis; R10.9 Unspecified abdominal pain | CPT/HCPCS: 80053; 80061; 84443; 85025 ==

== ENCOUNTER → 2023-12-31 14:32 | Outpatient (BNVA) | payer MEDICARE, SELFPAY | PROVIDERS: PCP Family Medicine; Visit Provider Specialist | DX: G56.03 Carpal tunnel syndrome, bilateral upper limbs (principal) | CPT/HCPCS: 95910 ==

== ENCOUNTER → 2024-01-27 12:04 | Outpatient (BNVA) | payer MEDICARE, SELFPAY | PROVIDERS: PCP Family Medicine; Visit Provider Physician Assistant | DX: Z09 Encounter for follow-up examination after completed treatment for conditions other than malignant neoplasm (principal); G56.03 Carpal tunnel syndrome, bilateral upper limbs | CPT/HCPCS: 99213 ==

== ENCOUNTER → 2024-03-21 13:00 | Outpatient (BNVA) | payer MEDICARE, SELFPAY | PROVIDERS: PCP Nurse Practitioner Family; Visit Provider Nurse Practitioner Family | DX: M25.552 Pain in left hip (principal) | CPT/HCPCS: 73502; 73552 ==

== ENCOUNTER → 2024-09-27 10:57 | Outpatient (BNVA) | payer MEDICARE, SELFPAY | PROVIDERS: PCP Nurse Practitioner Family; Visit Provider Nurse Practitioner Family | DX: Z12.5 Encounter for screening for malignant neoplasm of prostate (principal); J44.9 Chronic obstructive pulmonary disease, unspecified; R73.9 Hyperglycemia, unspecified; R06.00 Dyspnea, unspecified; E78.5 Hyperlipidemia, unspecified | CPT/HCPCS: 80053; 80061; 83036; 84443; 85025; G0103 ==

== ENCOUNTER 2024-10-07 07:38 | Outpatient (CLI) | payer MEDICARE, SELFPAY ==
--- NOTE | 2024-10-07 08:00 | CT_ITS ---
WS: [id number] LDCT LUNG CANCER SCREENING TECHNIQUE: Noncontrast CT of the chest with coronal and sagittal reformatted images. CLINICAL INFORMATION: F17.210 - Nicotine dependence, cigarettes, uncomplicated COMPARISON: 2022 DLP: 143.67 mGy.cm DIvol: Mean CTDIvol: 3.30 (mGy) All CT scans at [facility] use at least one of these dose optimization techniques: automated exposure control; mA and/or kV adjustment per patient size (includes targeted exams where dose is matched to clinical indication); or iterative reconstruction. FINDINGS: Chronic emphysematous changes. No new suspicious pulmonary parenchymal lung opacities. Subsegmental atelectasis in the lung bases RIGHT greater than LEFT and RIGHT middle lobe. Normal caliber thoracic aorta. Calcified LEFT hilar and subcarinal lymph nodes. No mediastinal or hilar lymphadenopathy. No axillary lymphadenopathy. Adrenal glands are normal. Prominent lymph nodes at the GE junction unchanged. This is unchanged since 2017. Fatty atrophy of the pancreas. Chronic RIGHT rib fractures with callus formation. CT/CT lung screening [id number] IMPRESSION: LUNG-RADS: 1-Negative FOLLOW UP: 12 Month: Continue annual screening with LDCT
== END 2024-10-07 07:39 | disposition home or self-care (01) ==
PROVIDERS: PCP Nurse Practitioner Family; Visit Provider Nurse Practitioner Family
DX: Z12.2 Encounter for screening for malignant neoplasm of respiratory organs (principal); F17.210 Nicotine dependence, cigarettes, uncomplicated; J43.8 Other emphysema; J98.11 Atelectasis; R59.0 Localized enlarged lymph nodes; K86.89 Other specified diseases of pancreas; S22.41XD Multiple fractures of ribs, right side, subsequent encounter for fracture with routine healing; X58.XXXD Exposure to other specified factors, subsequent encounter
CPT/HCPCS: 71271

== ENCOUNTER → 2024-10-11 10:29 | Outpatient (BNVA) | payer MEDICARE, SELFPAY | PROVIDERS: PCP Nurse Practitioner Family; Visit Provider Nurse Practitioner Family | DX: I10 Essential (primary) hypertension (principal) | CPT/HCPCS: 80048 ==

== ENCOUNTER → 2024-11-04 10:22 | Outpatient (BNVA) | payer MEDICARE, SELFPAY | PROVIDERS: PCP Nurse Practitioner Family; Visit Provider Physician Assistant | DX: G56.03 Carpal tunnel syndrome, bilateral upper limbs (principal) | CPT/HCPCS: 73110; 99214 ==

== ENCOUNTER → 2024-11-28 14:19 | Outpatient (BNVA) | payer MEDICARE, SELFPAY | PROVIDERS: PCP Nurse Practitioner Family; Visit Provider Nurse Practitioner Family | DX: M47.896 Other spondylosis, lumbar region (principal) | CPT/HCPCS: 72100 ==

== ENCOUNTER 2024-12-23 06:50 | Day surgery (SDC) | payer MEDICARE, SELFPAY ==
[2024-12-23] VITALS (11 sets, daily range): BP systolic 85–146; BP diastolic 59–82; PULSE 64–76; RESP 12–20; TEMP 36.2–36.4; O2SAT 94–99; BMI 37.9
[2024-12-23] MEDS: acetaminophen 1,000 MG/100 ML PIGGYBACK 400 MG IV (07:41)
--- NOTE | 2024-12-23 07:57 | P.HP_ITS ---
Same Day Surgery H&P Indication for Procedure/HPI DATE OF PROCEDURE: December 23, 2024 CHIEF COMPLAINT/INDICATIONFOR SURGICAL PROCEDURE: Right carpal tunnel syndrome PREOP DIAGNOSIS: Right carpal tunnel syndrome PLANNED PROCEDURE: Operation Date: 12/23/24 08:55 Proposed Procedures p RIGHT Carpal Tunnel Release(Right) - José Miguel Sesay DO Medications/Allergies* Home Medications ?Medication ?Instructions ?Recorded ?Confirmed ?Type albuterol sulfate 2.5 mg/3 mL 2.5 mg inhalation DIR ECTED PRN 12/22/24 12/23/24 History (0.083 %) solution for nebulization sob rosuvastatin 40 mg tablet 40 mg PO DAILY 12/22/24/01/19 History Allergies/Adverse Reactions Allergy/AdvReac Type Severity Reaction Status Date / Time No Known Allergies Allergy Verified 12/23/24 07:16 Current Medications: Generic Name Dose Route Start Last Admin Trade Name Freq PRN Reason Stop Dose Admin Sodium Chloride 1,000 mls @ 30 mls/hr 12/23/24 07:00 12/23/24 07:41 Sodium Chloride 0.9% IV 12/24/24 06:59 30 mls/hr .Q24H SNEHAL Administration Pertinent History/Comorbid Conditions* Medical History (Updated 09/27/24 @ 10:46 by SAMI Orosco) Hyperlipidemia Asthma Surgical History (Updated 04/29/22 @ 08:25 by Glenn Funez DO) Hx of colonoscopy with polypectomy Previous back surgery History of hernia surgery Family History (Updated 08/30/19 @ 10:32 by Colleen Ashley LPN, RT) Diabetes Mother Hypertension Mother Social History Smoking and tobacco/nicotine status: never used tobacco/nicotine Quit status (tobacco/nicotine): has quit using Year quit tobacco: 2022 Former quit date comment: 1.5 ppd X 5 years Second hand smoke exposure: No Alcohol intake: never Substance/Drug Use: never Caregiver/support person: Yes Lives independently: Yes (spouse) Household members: spouse Marital status: service: No Current occupational status: disabled Current gender identity: Male Special destiny needs: No Pertinent Exam Findings alert, oriented x 3, operative site marked and procedure specific exam findings Please refer to detailed orthopedic examination on 11/04/2024 listed below: bilateral Hand exam-positive Tinel's and positive Phalen's test. no thenar atrophy and thenar muscle weakness. Full range of motion in fingers and wrist and fingers are warm and well-perfused with normal cap refill under 2 seconds. Radial pulse 2+, no intrinsic muscle weakness noted. bilateral Elbow exam-negative Tinel's test Recommendations Risks and benefits of procedure reviewed and Patient/family agree to proceed Surgery/Procedure today Other Plans: Plan to proceed to the OR today for right carpal tunnel release. Patient understands incidence procedure benefits complication alternatives surgical nonsurgical treatment options. Understanding risk of surgery patient like to proceed with surgical intervention. All questions answered at this time. Coding Level of Care Code Acute Code for [facility] Fwd
--- NOTE | 2024-12-23 07:58 | P.ANESASSM_ITS ---
Pre-Anesthetic Assessment Height/Weight: Height 5 ft 11 in Weight 272 lb Temp Pulse Resp BP Pulse Ox O2 Del Method 97.4 F L 76 20 H 146/76 97 Room Air 12/23/24 07:32 12/23/24 07:32 12/23/24 07:32 12/23/24 07:32 12/23/24 07:32 12/23/24 07:32 Preop Diagnosis: Right carpal tunnel syndrome Operation Date: 12/23/24 08:55 Proposed Procedures p RIGHT Carpal Tunnel Release(Right) - José Miguel Sesay, DO Was Beta Dwayne taken within 24 hours: N/A Was Clonidine taken within 24 hours: N/A Last intake: Intake Last Liquid Date 12/22/24 Last Liquid Time 23:00 Last Solid Date 12/22/24 Last Solid Time 17:00 Social Tobacco and No alcohol Exam alert, oriented x 3 and regular rate & rhythm Decreased breath sounds bilaterally Airway Submandibular: Other (Large neck) Cervical ROM: within normal limits Mallampati: Class III Comments: Comments: Edentulous, rod with large neck circumference Anesthetic Plan ASA status: 3 Anesthesia: MAC Other: No prior issues with anesthesia NPO since yesterday evening History of COPD, still smoking. Referral made to pulmonology because patient states he has been getting increased SOB over the past 6 months. Thinks it is his asthma FLORIAN, CPAP nightly Hypertension on HCTZ and lisinopril Labs from September reviewed and acceptable Echo 2021 showing EF of 60% Plan for MAC anesthesia with local via surgeon Medications/Allergies Home Medications ?Medication ?Instructions ?Recorded ?Confirmed ?Last Taken ?Type NEBULIZER #1 ea 07/09/22 12/23/24 Unkn own Rx simethicone 180 mg capsule (Gas 180 mg PO BID #60 caps 03/16/24 12/23/24 12/22/24 Rx Relief (simethicone)) cpap filter #1 ea 06/06/24 12/23/24 Unkn own Rx albuterol sulfate 90 mcg/actuation 2 puff inhalation Q 6H PRN 09/27/24 12/23/24 12/23/24 05:00 Rx aerosol inhaler shortness of breath or wheez ing #8.5 grams budesonide 160 mcg-glycopyr 9 2 inh inhalation BID #10 .7 grams 09/27/24 12/23/24 12/23/24 05:00 Rx mcg-formot 4.8 mcg/actuation HFA inhaler (Breztri Aerosphere) fenofibrate 160 mg tablet 160 mg PO DAILY #90 tabs 07/1912/23/24 12/22/24 Rx hydrochlorothiazide 25 mg tablet 25 mg PO DAILY #30 ta bs 09/27/24 12/23/24 12/22/24 Rx lisinopril 10 mg tablet 10 mg PO DAILY #30 tabs 06/0 07/1912/23/24 12/22/24 Rx pramipexole 1 mg tablet 1 mg PO .qhs restless legs # 30 tabs 09/27/24 12/23/24 12/22/24 Rx methocarbamol 750 mg tablet 750 mg PO TID PRN muscle s pasm #90 11/15/24 12/23/24 12/22/24 Rx tabs bupropion HCl 150 mg 24 hr tablet, 150 mg PO QAM #90 t abs 12/13/24 12/23/24 12/22/24 Rx extended release (Wellbutrin XL) albuterol sulfate 2.5 mg/3 mL 2.5 mg inhalation DIR ECTED PRN 12/22/24 12/23/24 12/22/24 History (0.083 %) solution for nebulization sob rosuvastatin 40 mg tablet 40 mg PO DAILY 12/22/24 08/01/1912/22/24 History Allergies Allergy/AdvReac Type Severity Reaction Status Date / Time No Known Allergies Allergy Verified 12/23/24 07:16 Current Medications Generic Name Dose Route Start Last Admin Trade Name Freq PRN Reason Stop Dose Admin Sodium Chloride 1,000 mls @ 30 mls/hr 12/23/24 07:00 12/23/24 07:41 Sodium Chloride 0.9% IV 12/24/24 06:59 30 mls/hr .Q24H SNEHAL Administration PFSH Anesthesia Medical History Hyperlipidemia Asthma Surgical History Hx of colonoscopy with polypectomy Previous back surgery History of hernia surgery Family History Mother Diabetes Hypertension Social History Smoking and tobacco/nicotine status: never used tobacco/nicotine Quit status (tobacco/nicotine): has quit using Year quit tobacco: 2022 Former quit date comment: 1.5 ppd X 5 years Second hand smoke exposure: No Alcohol intake: never Substance/Drug Use: never Caregiver/support person: Yes Lives independently: Yes (spouse) Household members: spouse Marital status: service: No Current occupational status: disabled Current gender identity: Male Special destiny needs: No Data Anesthesia Cardiac Studies: Echocardiogram 09/19/21
[2024-12-23] MEDS: ceFAZolin 3,000 MG in sodium chloride 0.9% (plus) 100 ML 200 MG IV (09:06)
[2024-12-23] MEDS: ROPivacaine 0.5% SDV 30 mL 150 MG INJECTION (09:25)
[2024-12-23] MEDS: lidocaine-epi 1% 20 mL INJ INJECTION (09:25)
--- NOTE | 2024-12-23 09:44 | P.BOP_ITS ---
Date of Procedure: 12/23/2024 Surgeon: José Miguel Sesay DO Administrative Executive(s): None Procedure(s) performed: right carpal tunnel release Findings of the procedure(s): Underwent procedure as planned without issues or complications Estimated blood loss: 3 mL Specimen(s) removed: None Post-operative diagnosis: Right carpal tunnel syndrome
--- NOTE | 2024-12-23 09:45 | PM.OP ---
Operative Report Date of procedure: December 23, 2024 Surgeon: José Migule Sesay DO Procedure: Preop Diagnosis: Right Carpal Tunnel Syndrome Post-op diagnosis: Same Procedure done: 1. Right carpal tunnel release Surgeon: José Miguel Sesay DO Anesthesia: MAC (Local) Estimated blood loss: 3 mL Tourniquet time 6 minutes IV fluids: See anesthesia record Complications: None Findings: See operative report narrative Condition: stable Disposition: same day Brief History: Patient is a pleasant 58 year-old male with right carpal tunnel syndrome. Patient has been worked up in the outpatient setting findings and physical examination consistent with this. Patient nerve conduction studies consistent with carpal tunnel syndrome. We detailed out patient's risk benefits complication alternatives with surgical and nonsurgical treatment options. Through shared decision making, patient agrees to proceed with surgical intervention of the right carpal tunnel release . Patient understands and agrees with current plan. All questions answered. Patient elects to proceed with surgical intervention . Procedure: Patient seen and evaluated in the preoperative holding area. Consent was reviewed and signed with patient. Correct extremity was marked. Patient was seen evaluated by the anesthesia department once cleared for surgery was brought back to the operative suite. [facility] was kept on [facility] in supine position all bony prominences were well-padded patient properly secured to the bed. Right upper extremity was then placed onto an armboard. A nonsterile tourniquet was applied to the Right upper arm. Patient underwent anesthesia per the anesthesia department. Patient's Right upper extremity was then prepped and draped in standard orthopedic fashion. Final timeout performed. Patient received appropriate preoperative antibiotics. Under sterile aseptic technique patient received local anesthesia over the preplanned carpal tunnel incision site. Esmarch was used to exsanguinate the Right upper extremity and tourniquet was insufflated to 250 mmHg. A standard mini open Right carpal tunnel incision was made. Starting distally at Casas's cardinal line in line with the fourth ray extending proximally distal to the wrist crease centered over the carpal tunnel. Sharp scalpel incision was made through skin and subcutaneous tissue. Self-retaining retractor was placed and the palmar fascia was identified. This was then split longitudinally and direct visualization of the transverse carpal ligament was then made. I then utilizing scalpel feathered through the transverse carpal ligament until I entered the floor of the transverse carpal tunnel ligament into the carpal tunnel. Next I switched to dissection scissors and completed my release of the transverse carpal ligament distally with care to protect the recurrent motor branch. I completely released into the palmar fat and until no entrapment was noted distally. Care was made to protect the superficial palmar arch during my distal dissection. Next I utilized a nasal speculum placed on top of the transverse carpal ligament and utilize this to retract the subcutaneous fat and tissue and under direct loupe magnification was able to identify the transverse carpal ligament. Next I then protected the contents of the carpal tunnel and subsequently utilizing dissection scissors under loupe magnification completely released the transverse carpal ligament proximally into the antebrachial fascia. Care was made to protect the palmar cutaneous branch by keeping my scissors curved ulnarly. Once completely released, I then placed my [place] and had appropriate decompression of the carpal tunnel proximally as well as distally. I then inspected the contents of the carpal tunnel which showed an hourglass shape of the median nerve showing its compression. No masses were noted. Tendons appeared healthy. Wound was then thoroughly irrigated. Tourniquet deflated. Hemostasis satisfactory with bipolar electrocautery. I then closed the incision with interrupted nylon stitches. Xeroform 4 x 4's and a bulky soft dressing was applied. Patient was then awakened from anesthesia and taken to PACU in stable condition. Patient tolerated procedure without complications. Disposition: Patient taken to PACU in stable condition recovering well. Dressing clean dry and intact. Patient will receive appropriate discharge instructions as well as pain medication postoperatively. Patient to follow-up with me in the office in 2 weeks. They understand they may be weightbearing as tolerated to the right hand, instructed to limit heavy lifting patient should keep incision clean dry and intact. Patient understands if any questions or concerns may contact the office.
--- NOTE | 2024-12-23 09:53 | SUR.PHASEI ---
09:45 RECEIVED PT FROM OR STAFF. VENTILATING WELL WITH GOOD CHEST RISE AND FALL. NSR ON MONITOR.
--- NOTE | 2024-12-23 10:09 | SUR.PHASEI ---
10:05 ORAL AIRWAY DC ED. PT RESPONDS TO VERBAL. VENTILATING WELL. NSR ON MONITOR.
--- NOTE | 2024-12-23 10:13 | SUR.PHASEI ---
10:10 GOOD ROM AND SENSATION OF RIGHT FINGERS.AIRWAY REMAINS CLEAR. NO DYSPNEA NOTED.
--- NOTE | 2024-12-23 11:00 | ANE.PACU2 ---
Inpatient post-anesthesia follow up: Airway intact: Yes Vital signs: Temperature 97.4 F Pulse Rate 64 Respiratory Rate 16 Blood Pressure 125/82 Pulse Oximetry 94 Oxygen Delivery Me thod Room Air Oxygen Flow Rate 8 Fraction of Inspir ed Oxygen Hydration adequate: Yes Nausea and vomiting: No Pain level: 1 Mental status: Baseline
== END 2024-12-23 11:00 | disposition home or self-care (01) ==
PROVIDERS: PCP Nurse Practitioner Family; Visit Provider Student in an Organized Health Care Education/Training Program
PROC: (CPT 64721; principal; 2024-12-23 08:45)
DX: G56.01 Carpal tunnel syndrome, right upper limb (principal); E78.5 Hyperlipidemia, unspecified; Z87.891 Personal history of nicotine dependence; J44.9 Chronic obstructive pulmonary disease, unspecified; G47.33 Obstructive sleep apnea (adult) (pediatric); Z99.89 Dependence on other enabling machines and devices; I10 Essential (primary) hypertension
CPT/HCPCS: 64721; J0131; J0690; J1100; J1885; J2250; J2405; J2704; J2795; J3010; J7030; J9999

== ENCOUNTER → 2025-01-10 09:37 | Outpatient (BNVA) | payer MEDICARE, SELFPAY | PROVIDERS: PCP Nurse Practitioner Family; Visit Provider Physician Assistant | DX: Z98.890 Other specified postprocedural states (principal) | CPT/HCPCS: 99024 ==

== ENCOUNTER 2025-01-17 06:58 | Outpatient (CLI) | payer MEDICARE, SELFPAY ==
--- NOTE | 2025-01-17 07:15 | MR_ITS ---
WS: [id number] MRI LUMBAR SPINE NONCONTRAST HISTORY: M54.50 - Low back pain, unspecified, LEFT leg radiculopathy. COMPARISON: None available. TECHNIQUE: Sagittal and axial multisequence imaging is submitted. LEFT curvature lumbar spine. Posterior lumbar fusion at L4-5. Small amount of marrow edema in the adjacent endplates of L5 and S1. Disc spaces are diffusely narrowed and desiccated. L1-L3 retrolisthesis by 2 to 3 mm. Conus terminates normally at L1-2 disc level. L1-L2: Diffuse annular disc bulging with osteophytic ridging, mild ligamentum flavum and facet arthritis. Annular disc bulging and osteophytosis resulting in mild to moderate foraminal stenosis. Mild subarticular recess stenosis. L2-L3: Diffuse osteophytic ridging with annular disc bulging. Disc bulging is asymmetric to the RIGHT and extends into the foramen and extraforaminal. Mild central, subarticular recess and LEFT foraminal stenosis. Mild to moderate RIGHT foraminal stenosis. L3-L4: Diffuse annular disc bulging with osteophytic ridging, moderate facet disease and ligamentum flavum hypertrophy. Moderate to severe central, subarticular recess and moderate foraminal stenosis, LEFT greater than RIGHT. There is encroachment upon the traversing L4 nerve roots and the exiting L3 n erve roots. L4-L5: Diffuse annular disc bulging with osteophytic ridging. Patulous thecal sac. Posterior laminectomy defect. Mild RIGHT foraminal stenosis. L5-S1: Diffuse disc bulging. Mild bilateral facet arthritis. Moderate bilateral foraminal stenosis due to disc and osteophyte and facet disease, slightly greater on the LEFT. MR/MR lumbar spine wo con* [id number] IMPRESSION: 1. Status post prior posterior lumbar fusion at L4-5. 2. Multilevel degenerative disc disease and facet joint arthritis and osteophy tosis. 3. Moderate bilateral foraminal stenosis at L5-S1 due to disc and osteophyte d isease, slightly greater on the LEFT. 4. Moderate to severe central, subarticular recess and moderate foraminal sten osis, LEFT greater than RIGHT at L3-4. 5. Asymmetric disc bulging to the RIGHT at L2-3. Mild to moderate RIGHT forami nal stenosis. Mild central, subarticular recess and LEFT foraminal stenosis at L2-3. 6. Moderate bilateral foraminal stenosis at L1-2 with mild subarticular recess stenosis. 7. LEFT curvature lumbar spine.
== END 2025-01-17 06:59 | disposition home or self-care (01) ==
LOC: RAD 06:59
PROVIDERS: PCP Nurse Practitioner Family; Visit Provider Nurse Practitioner Family
DX: M51.362 Other intervertebral disc degeneration, lumbar region with discogenic back pain and lower extremity pain (principal); Z98.1 Arthrodesis status; M48.061 Spinal stenosis, lumbar region without neurogenic claudication; M47.26 Other spondylosis with radiculopathy, lumbar region; M25.78 Osteophyte, vertebrae; M48.07 Spinal stenosis, lumbosacral region; M51.17 Intervertebral disc disorders with radiculopathy, lumbosacral region; M43.8X6 Other specified deforming dorsopathies, lumbar region; R93.7 Abnormal findings on diagnostic imaging of other parts of musculoskeletal system
CPT/HCPCS: 72148

== ENCOUNTER 2025-02-07 09:51 | Outpatient (CLI) | payer MEDICARE, SELFPAY ==
[2025-02-07 10:15] VITALS: PULSE 82; RESP 18; O2SAT 97
== END 2025-02-07 09:52 | disposition home or self-care (01) ==
LOC: RT 09:55
PROVIDERS: PCP Nurse Practitioner Family; Visit Provider Nurse Practitioner Family
DX: J44.9 Chronic obstructive pulmonary disease, unspecified (principal); J98.8 Other specified respiratory disorders; R94.2 Abnormal results of pulmonary function studies
CPT/HCPCS: 94060; 94726; 94729; J7613

== ENCOUNTER → 2025-02-20 09:53 | Outpatient (BNVA) | payer MEDICARE, SELFPAY | PROVIDERS: PCP Nurse Practitioner Family; Referring Provider Nurse Practitioner Family; Visit Provider Anesthesiology Pain Medicine | DX: M54.9 Dorsalgia, unspecified (principal) | CPT/HCPCS: 99204 ==

== ENCOUNTER → 2025-02-21 10:16 | Outpatient (BNVA) | payer MEDICARE, SELFPAY | PROVIDERS: PCP Nurse Practitioner Family; Visit Provider Physician Assistant | DX: G56.02 Carpal tunnel syndrome, left upper limb (principal) | CPT/HCPCS: 99214 ==

== ENCOUNTER → 2025-02-23 14:35 | Outpatient (BNVA) | payer MEDICARE, SELFPAY | PROVIDERS: PCP Nurse Practitioner Family; Visit Provider Orthopaedic Surgery | DX: M51.360 Other intervertebral disc degeneration, lumbar region with discogenic back pain only (principal); M48.061 Spinal stenosis, lumbar region without neurogenic claudication; G89.29 Other chronic pain | CPT/HCPCS: 72110; 99214 ==

== ENCOUNTER 2025-03-16 09:58 | Outpatient (RCR) | payer MEDICARE, SELFPAY | END 2025-03-26 23:59 | disposition home or self-care (01) | LOC: APT 09:58 | PROVIDERS: Visit Provider Orthopaedic Surgery | DX: M54.50 Low back pain, unspecified (principal) | CPT/HCPCS: 97110; 97161 ==

== ENCOUNTER 2025-04-06 06:12 | Day surgery (SDC) | payer MEDICARE, SELFPAY ==
[2025-04-06] VITALS (8 sets, daily range): BP systolic 100–145; BP diastolic 68–86; PULSE 80–88; RESP 16–20; TEMP 36.4–36.8; O2SAT 93–99; BMI 38.2
[2025-04-06] MEDS: acetaminophen 1,000 MG/100 ML PIGGYBACK 400 MG IV (06:50)
--- NOTE | 2025-04-06 08:22 | ANES.PREANE2 ---
Pre-Anesthetic Assessment Height/Weight: Height 5 ft 10 in Weight 267 lb Temp Pulse Resp BP Pulse Ox O2 Del Method 98.2 F 86 18 125/69 97 Room Air 04/06/25 06:43 04/06/25 06:43 04/06/25 06:43 04/06/25 06:43 04/06/25 06:43 04/06/25 06:43 Preop Diagnosis: Carpal tunnel syndrome Operation Date: 04/06/25 09:25 Proposed Procedures p Carpal Tunnel Release(Left) - José Miguel Sesay, DO Was Beta Dwayne taken within 24 hours: N/A Was Clonidine taken within 24 hours: N/A Last intake: Intake Last Liquid Date 04/05/25 Last Liquid Time 17:00 Last Solid Date 04/05/25 Last Solid Time 17:00 Social Tobacco and No alcohol Exam alert, oriented x 3 and regular rate & rhythm Expiratory wheeze on auscultation Airway Submandibular: within normal limits Cervical ROM: within normal limits Mallampati: Class III Comments: Comments: Edentulous Anesthetic Plan ASA status: 3 Anesthesia: MAC Other: No prior issues with anesthesia NPO since yesterday evening History of hypertension on lisinopril and HCTZ FLORIAN, no CPAP COPD Current smoker, expiratory wheezing heard on auscultation. Preop DuoNeb given BMP WNL Plan for MAC anesthesia with local view surgeon Medications/Allergies Home Medications ?Medication ?Instructions ?Recorded ?Confirmed ?Last Taken ?Type NEBULIZER #1 ea 07/09/22 04/05/25 Unknown Rx cpap filter #1 ea 06/06/24 04/05/25 Unknown Rx albuterol sulfate 90 mcg/actuation 2 puff inhalation Q6H PRN 09/27/24 04/05/25 03/20/25 06:00 Rx aerosol inhaler shortness of breath or wheezing #8.5 grams fenofibrate 160 mg tablet 160 mg PO DAILY #90 tabs 09/27/24 04/05/25 03/20/25 06:00 Rx lisinopril 10 mg tablet 10 mg PO DAILY #30 tabs 09/27/24 04/05/25 03/20/25 06:00 Rx pramipexole 1 mg tablet 1 mg PO .qhs restless legs #30 tabs 09/27/24 04/05/25 03/19/25 21:00 Rx rosuvastatin 40 mg tablet 40 mg PO DAILY 12/22/24 04/05/25 03/20/25 06:00 History budesonide 160 mcg-glycopyr 9 2 inh inhalation BID #10.7 grams 01/13/25 04/05/25 03/20/25 06:00 Rx mcg-formot 4.8 mcg/actuation HFA inhaler (Breztri Aerosphere) hydrochlorothiazide 25 mg tablet 25 mg PO DAILY #30 tabs 01/13/25 04/05/25 03/20/25 06:00 Rx bupropion HCl 300 mg 24 hr tablet, 300 mg PO QAM #90 tabs 02/16/25 04/05/25 03/20/25 06:00 Rx extended release albuterol sulfate 2.5 mg/3 mL 2.5 mg continuous nebulization ONCE 03/20/25 04/05/25 03/20/25 06:00 History (0.083 %) solution for nebulization celecoxib 200 mg capsule 200 mg PO DAILY 03/20/25 04/05/25 03/20/25 06:00 History Allergies Allergy/AdvReac Type Severity Reaction Status Date / Time No Known Allergies Allergy Verified 04/05/25 10:11 Current Medications Generic Name Dose Route Start Last Admin Trade Name Freq PRN Reason Stop Dose Admin Sodium Chloride 1,000 mls @ 30 mls/hr 04/06/25 06:30 04/06/25 06:49 Sodium Chloride 0.9% IV 04/07/25 06:29 30 mls/hr .Q24H SNEHAL Administration PFSH Anesthesia Medical History Hyperlipidemia Asthma Surgical History Hx of colonoscopy with polypectomy Previous back surgery History of hernia surgery Family History Mother Diabetes Hypertension Social History Smoking and tobacco/nicotine status: never used tobacco/nicotine Quit status (tobacco/nicotine): has quit using Year quit tobacco: 2022 Former quit date comment: 1.5 ppd X 5 years Second hand smoke exposure: No Alcohol intake: never Substance/Drug Use: never Caregiver/support person: Yes Lives independently: Yes (spouse) Household members: spouse Marital status: service: No Current occupational status: disabled Current gender identity: Male Special destiny needs: No Data Anesthesia 04/06/25 08:04 BMP 04/06/25 04/06/25 06:50 07:35 Sodium Cancelled Cancelled Potassium Cancelled Cancelled Chloride Cancelled Cancelled Carbon Dioxide Cancelled Cancelled BUN Cancelled Cancelled Creatinine Cancelled Cancelled Glucose Cancelled Cancelled Calcium Cancelled Cancelled Cardiac Studies: Echocardiogram 09/19/21
[2025-04-06 08:29] LABS: Anion Gap 12.3 (5-19); Blood Urea Nitrogen 19 mg/dL (8-23); Calcium 9.0 mg/dL (8.5-10.5); Carbon Dioxide 26 mmol/L (22-29); Chloride 104 mmol/L (98-107); Glucose 96 mg/dL (65-115); Osmolality Calculated 288 mOsm/kg (285-295); Potassium 4.3 mmol/L (3.5-5.1); Sodium 138 mmol/L (136-145)
--- NOTE | 2025-04-06 08:59 | W.PM.OPSFHP ---
Same Day Surgery H&P Indication for Procedure/HPI DATE OF PROCEDURE: April 06, 2025 CHIEF COMPLAINT/INDICATIONFOR SURGICAL PROCEDURE: Left carpal tunnel syndrome PREOP DIAGNOSIS: Left carpal tunnel syndrome PLANNED PROCEDURE: Operation Date: 04/06/25 09:25 Proposed Procedures p Carpal Tunnel Release(Left) - José Miguel Sesay, DO Medications/Allergies* Home Medications ?Medication ?Instructions ?Recorded ?Confirmed ?Type albuterol sulfate 2.5 mg/3 mL 2.5 mg continuous nebulization ONCE 03/20/25 04/05/25 History (0.083 %) solution for nebulization celecoxib 200 mg capsule 200 mg PO DAILY 03/20/25 04/05/25 History Allergies/Adverse Reactions Allergy/AdvReac Type Severity Reaction Status Date / Time No Known Allergies Allergy Verified 04/05/25 10:11 Current Medications: Generic Name Dose Route Start Last Admin Trade Name Freq PRN Reason Stop Dose Admin Sodium Chloride 1,000 mls @ 30 mls/hr 04/06/25 06:30 04/06/25 06:49 Sodium Chloride 0.9% IV 04/07/25 06:29 30 mls/hr .Q24H SNEHAL Administration Pertinent History/Comorbid Conditions* Medical History (Updated 09/27/24 @ 10:46 by SAMI Orosco) Hyperlipidemia Asthma Surgical History (Updated 01/10/25 @ 10:11 by DOLORES Hurst) Hx of colonoscopy with polypectomy Previous back surgery History of hernia surgery Family History (Updated 08/30/19 @ 10:32 by Colleen Ashley LPN, RT) Diabetes Mother Hypertension Mother Social History Smoking and tobacco/nicotine status: never used tobacco/nicotine Quit status (tobacco/nicotine): has quit using Year quit tobacco: 2022 Former quit date comment: 1.5 ppd X 5 years Second hand smoke exposure: No Alcohol intake: never Substance/Drug Use: never Caregiver/support person: Yes Lives independently: Yes (spouse) Household members: spouse Marital status: service: No Current occupational status: disabled Current gender identity: Male Special destiny needs: No Pertinent Exam Findings alert, oriented x 3, operative site marked and procedure specific exam findings Please refer to anesthesia preoperative valuation for heart and lung findings Please refer to detail orthopedic examination on 02/21/2025 listed below: Left Hand exam-positive Tinel's and positive Phalen's test. mild thenar atrophy and no thenar muscle weakness. Full range of motion in fingers and wrist and fingers are warm and well-perfused with normal cap refill under 2 seconds. Radial pulse 2+, no intrinsic muscle weakness noted. Left Elbow exam-negative Tinel's test Recommendations Risks and benefits of procedure reviewed and Patient/family agree to proceed Surgery/Procedure today Other Plans: Plan to proceed to the OR today for left carpal tunnel release. Patient's happy with his results from his previous carpal tunnel release is satisfied with his results and may proceed with the left side. Patient understands the ins and outs of the procedure the risk benefits complication alternative surgical nonsurgical treatment options. Understanding risk of surgery patient elects proceed with surgical intervention. All questions answered at this time. Coding Level of Care Code Acute Code for Delaig Samson
[2025-04-06] MEDS: ceFAZolin 2,000 MG in sodium chloride 0.9% (plus) 50 ML 100 MG IV (09:08)
[2025-04-06] MEDS: ROPivacaine 0.5% SDV 30 mL 150 MG INJECTION (09:43)
[2025-04-06] MEDS: lidocaine-epi 1% 20 mL INJ INJECTION (09:43)
--- NOTE | 2025-04-06 09:58 | W.PM.BPON ---
Date of Procedure: [April 06, 2025] Surgeon: [Dr. Sesay DO] [employer] Processor(s): [NA] Procedure(s) performed: [Left carpal tunnel release] Findings of the procedure(s): [Left carpal tunnel syndrome with median nerve entrapment at wrist. Procedure went well and is planned.] Estimated blood loss: [3 ml] Specimen(s) removed: [N/A] Post-operative diagnosis: [Left carpal tunnel syndrome with median nerve entrapment at wrist]
--- NOTE | 2025-04-06 10:00 | P.OP_ITS ---
Operative Report Date of procedure: April 06, 2025 Surgeon: José Miguel Sesay DO Procedure: Preop Diagnosis: Left Carpal Tunnel Syndrome Post-op diagnosis: Same Procedure done: 1. Left carpal tunnel release Surgeon: José Miguel Sesay DO Anesthesia: MAC (Local) Estimated blood loss: 3 mL Tourniquet time 8 minutes IV fluids: See anesthesia record Complications: None Findings: See operative report narrative Condition: stable Disposition: same day Brief History: Patient is a pleasant 59 year-old male with left carpal tunnel syndrome. Patient has been worked up in the outpatient setting findings and physical examination consistent with this. Patient nerve conduction studies consistent with carpal tunnel syndrome. We detailed out patient's risk benefits complication alternatives with surgical and nonsurgical treatment options. Through shared decision making, patient agrees to proceed with surgical intervention of the left carpal tunnel release . Patient understands and agrees with current plan. All questions answered. Patient elects to proceed with surgical intervention with carpal tunnel release. Procedure: Patient seen and evaluated in the preoperative holding area. Consent was reviewed and signed with patient. Correct extremity was marked. Patient was seen evaluated by the anesthesia department once cleared for surgery was brought back to the operative suite. Patient was kept on [facility] in supine position all bony prominences were well-padded patient properly secured to the bed. Left upper extremity was then placed onto an armboard. A nonsterile tourniquet was applied to the left upper arm. Patient underwent anesthesia per the anesthesia department. Patient's left upper extremity was then prepped and draped in standard orthopedic fashion. Final timeout performed. Patient received appropriate preoperative antibiotics. Under sterile aseptic technique patient received local anesthesia over the preplanned carpal tunnel incision site. Esmarch was used to exsanguinate the left upper extremity and tourniquet was insufflated to 250 mmHg. A standard mini open left carpal tunnel incision was made. Starting distally at Casas's cardinal line in line with the fourth ray extending proximally distal to the wrist crease centered over the carpal tunnel. Sharp scalpel incision was made through skin and subcutaneous tissue. Self-retaining retractor was placed and the palmar fascia was identified. This was then split longitudinally and direct visualization of the transverse carpal ligament was then made. I then utilizing scalpel feathered through the transverse carpal ligament until I entered the floor of the transverse carpal tunnel ligament into the carpal tunnel. Next I switched to dissection scissors and completed my release of the transverse carpal ligament distally with care to protect the recurrent motor branch. I completely released into the palmar fat and until no entrapment was noted distally. Care was made to protect the superficial palmar arch during my distal dissection. Next, nasal speculum placed proximally for retraction of soft tissue on top of the Transverse carpal ligament. Next the contents of the carpal tunnel where protected and and subsequently utilizing dissection scissors under loupe magnification completely released the transverse carpal ligament proximally into the antebrachial fascia. Care was made to protect the palmar cutaneous branch by keeping my scissors curved ulnarly. Once completely released, I then placed my [place] and had appropriate decompression of the carpal tunnel proximally as well as distally. I then inspected the contents of the carpal tunnel which showed an hourglass shape of the median nerve showing its compression. No masses were noted. Tendons appeared healthy. Wound was then thoroughly irrig ated. Tourniquet deflated. Hemostasis satisfactory with bipolar electrocautery. I then closed the incision with interrupted nylon stitches. Xeroform 4 x 4's and a bulky soft dressing was applied to the left upper extremity. Patient was then awakened from anesthesia and taken to PACU in stable condition. Patient tolerated procedure without complications. Disposition: Patient taken to PACU in stable condition recovering well. Dressing clean dry and intact. Patient will receive appropriate discharge instructions as well as pain medication postoperatively. Patient to follow-up with me in the office in 2 weeks. They understand they may be weightbearing as tolerated to the left hand. Patient should keep incision clean dry and intact. Patient understands if any questions or concerns may contact the office.
--- NOTE | 2025-04-06 10:51 | ANE.PACU2 ---
Inpatient post-anesthesia follow up: Airway intact: Yes Vital signs: Temperature 97.6 F Pulse Rate 80 Respiratory Rate 18 Blood Pressure 145/86 Pulse Oximetry 93 Oxygen Delivery Me thod Room Air Oxygen Flow Rate 8 Fraction of Inspir ed Oxygen Hydration adequate: Yes Nausea and vomiting: No Pain level: 1 Mental status: Baseline
== END 2025-04-06 10:51 | disposition home or self-care (01) ==
PROVIDERS: PCP Nurse Practitioner Family; Visit Provider Student in an Organized Health Care Education/Training Program
PROC: (CPT 64721; principal; 2025-04-06 09:25)
DX: G56.02 Carpal tunnel syndrome, left upper limb (principal); E78.5 Hyperlipidemia, unspecified; G47.33 Obstructive sleep apnea (adult) (pediatric); Z99.89 Dependence on other enabling machines and devices; J44.9 Chronic obstructive pulmonary disease, unspecified; F17.200 Nicotine dependence, unspecified, uncomplicated
CPT/HCPCS: 64721; 36415; 80048; J0131; J0690; J1885; J2250; J2704; J2795; J3010; J7030; J9999

== ENCOUNTER → 2025-04-11 08:54 | Outpatient (BNVA) | payer MEDICARE, SELFPAY | PROVIDERS: PCP Nurse Practitioner Family; Referring Provider Nurse Practitioner Family; Visit Provider Internal Medicine | DX: J44.89 Other specified chronic obstructive pulmonary disease (principal); J82.83 Eosinophilic asthma; Z99.89 Dependence on other enabling machines and devices; F17.210 Nicotine dependence, cigarettes, uncomplicated; T78.40XA Allergy, unspecified, initial encounter; X58.XXXA Exposure to other specified factors, initial encounter | CPT/HCPCS: 36415; 86003; 99214; Q3014 ==

== ENCOUNTER 2025-04-12 14:48 | Outpatient (RCR) | payer MEDICARE, SELFPAY | END 2025-04-13 08:46 | disposition home or self-care (01) | LOC: APT 14:48 | PROVIDERS: Visit Provider Orthopaedic Surgery | DX: M54.50 Low back pain, unspecified (principal) | CPT/HCPCS: 97110; 97530 ==

== ENCOUNTER → 2025-04-26 09:04 | Outpatient (BNVA) | payer MEDICARE, SELFPAY | PROVIDERS: PCP Nurse Practitioner Family; Visit Provider Physician Assistant | DX: Z98.890 Other specified postprocedural states (principal) | CPT/HCPCS: 99024 ==